=== PATIENT | female | born 1940 | race Caucasian/White ===

== ENCOUNTER 2016-10-03 17:31 | Emergency (ER) | payer MEDICARE, BC ==
[~2016-10-03 17:31] MED LIST: Lidocaine 1% 20 ML MDV INFILT ONE
[2016-10-03] MEDS ORDERED: Amoxicillin/Clavulanate K 875-125 MG Tab PO ONE (18:44)
[2016-10-03] MEDS ORDERED: Diphtheria,Pertussis(Acell),Tetanus Vaccine 0.5 ML SDV IM ONE (18:45)
--- NOTE | 2016-10-03 18:48 | EDM.PDOC ---
ED HPI Skin/Rash - General Chief Complaint: Laceration Stated Complaint: RIGHT HAND INJURY Time Seen by Provider: 10/03/16 17:46 Source: Reports: Patient, Family History Limitations: Reports: No limitations - History of Present Illness INITIAL COMMENTS - FREE TEXT/NARRATIVE: 76 years old w f came to the ed after she injured her right hand [place] a [place]. Pt injured her right 2nd and 3rd finger. Pt has FROM. There was no active bleed. Pt denied other acute medial issues. Her SBP was 188 on arrival. 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(s) - Related Data Allergies Allergy/AdvReac Type Severity Reaction Status Date / Time ciprofloxacin [From Cipro] Allergy Headache Verified 10/03/16 17:45 nyquil Allergy Hypertensio Uncoded 10/03/16 17:45 n Home Meds: Ambulatory Orders Medication Instructions Recorded Confirmed Amoxicillin/Potassium Clav 1 each PO BID #20 tablet 10/03/16 [Augmentin 875-125 Tablet] Past Medical History HEENT History: Reports: Impaired vision, Other (see below) Other HEENT History: wears glasses Cardiovascular History: Reports: High cholesterol, Hypertension 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: - Infectious Disease History Infectious Disease History: Reports: Chicken pox, Measles, Mumps, Shingles - Past Surgical History Female Surgical History: Reports: Hysterectomy Social & Family History - Tobacco Use Smoking Status *Q: Never Smoker Second Hand Smoke Exposure: No - Caffeine Use Caffeine Use: Reports: Coffee - Recreational Drug Use Recreational Drug Use: No ED ROS GENERAL - Review of Systems Review Of Systems: See Below Constitutional: Reports: no symptoms HEENT: Reports: No symptoms Respiratory: Reports: No Symptoms Cardiovascular: Reports: No symptoms Endocrine: Reports: no symptoms GI/Abdominal: Reports: No symptoms : Reports: no symptoms Musculoskeletal: Reports: no symptoms Skin: Reports: other (Laceration) Neurological: Reports: No Symptoms Psychiatric: Reports: No symptoms Hematologic/Lymphatic: Reports: no symptoms Immunologic: Reports: no symptoms ED EXAM, SKIN/RASH Exam: See Below Exam Limited By: No limitations General Appearance: alert, WD/WN, mild distress Eye Exam: bilateral eye: normal inspection Ears: normal external exam Nose: normal inspection, normal mucosa Throat/Mouth: Normal inspection, Normal lips, Normal teeth Head: atraumatic, normocephalic Neck: normal inspection, supple, non-tender, full range of motion Respiratory/Chest: no respiratory distress, lungs clear, normal breath sounds, no accessory muscle use, chest non-tender Cardiovascular: normal peripheral pulses, regular rate, rhythm, no edema, no gallop, no JVD, no murmur, no rub Peripheral Pulses: 2+: femoral (L), femoral (R) GI/Abdominal: normal bowel sounds, soft, non tender, no organomegaly (Female) Exam: Deferred Rectal (Female) Exam: Deferred Back Exam: normal inspection, full range of motion Extremities: normal range of motion, normal capillary refill, other (LACERATION right 4+5th finger) Neurological: alert, oriented, CN II-XII intact, normal cognition, normal gait Psychiatric: normal affect, normal mood Skin: Warm, Dry, Intact, Wound/incision (LACERATIon 1.5 cm and 2 cm r 2nd and 4th finger dorsal aspect) Characteristics: linear Associated features: warmth, tenderness Lymphatic: no adenopathy ED SKIN PROCEDURES - Laceration/Wound Repair Right Finger Lac/wound length in cm: 3.5 (2 wounds, total 3.5 cm (1.5+2)) Appearance: subcutaneous, clean Distal NVT: neuro & vascular intact, no tendon injury Anesthetic type: local Local anesthesia - Lidocaine (Xylocaine): 1% plain Local anesthetic volume: 5cc Saline irrigation (cc's): 5 (please see nursing note) Exploration/Debridement/Repair: wound explored, in a bloodless field, explored to base Suture size: 4-0 # of sutures: 10 Repaired with: other (ethilon) Drain placement: No Sterile dressing applied: nurse Tetanus status addressed: Yes Complications: No Course - Vital Signs Text/Narrative:: 76 years old w f came to the ed after she injured her right hand [place] a [place]. Pt injured her right 2nd and 3rd finger. Pt has FROM. There was no active bleed. Pt denied other acute medial issues. Her SBP was 188 on arrival. PE: 1) Laceration r 2nd finger, proximal phalanx 1,5 cm linear 2) 3rd r finger, mid phalanx 2 cm Z shaped. No active bleed on both. Full Range of Motion both fingers Procedure: Please see note above Tx: Wound care, neosporine ointment, volar splint r 3rd finger, Augmentin, TD immunization Reexam: Improved Plan: D/C with instruction. Last Recorded V/S: Last Vital Signs Temp 36.6 C 10/03/16 19:11 Pulse 74 10/03/16 19:11 Resp 14 10/03/16 19:11 BP 150/65 H 10/03/16 19:11 Pulse Ox 97 10/03/16 19:11 - Orders/Labs/Meds Orders: Active Orders 24 hr Category Date Time Status Vaccines to be Administered [RC] PER UNIT ROUTINE Care 10/03/16 18:45 Active Hand Comp Min 3V Rt [CR] Stat Exams 10/03/16 17:53 Taken Meds: Medications Discontinued Medications Generic Name Dose Route Start Last Admin Trade Name Logan PRN Reason Stop Dose Admin Amoxicillin/Clavulanate Potassium 1 tab 10/03/16 18:44 10/03/16 18:52 Augmentin 875 Mg/125 Mg PO 10/03/16 18:45 1 tab ONETIME ONE Administration Diphtheria/Tetanus/Acell Pertussis 0.5 ml 10/03/16 18:45 10/03/16 18:54 Adacel IM 10/03/16 18:46 0.5 ml .ONCE ONE Administration Departure - Departure Time of Disposition: 18:51 Disposition: Home, Self-Care 01 Condition: good Clinical Impression: Finger laceration Qualifiers: Encounter type: initial encounter Qualified Code(s): S61.219A - Laceration without foreign body of unspecified finger without damage to nail, initial encounter Prescriptions: Amoxicillin/Potassium Clav [Augmentin 875-125 Tablet] 1 each PO BID #20 tablet Instructions: Sutured Wound Care Referrals: PCP,Not In Area [Primary Care Provider] - Forms: ED Department Discharge Additional Instructions: Plaese take tylenol/advil for pain, please take the AbX as recommended, wound check in 2-3 days, please avoid bending your finger for 1 week. Suture removal in 2 weeks. Please come back to the ed if your symptoms get worse acutely. - My Orders Last 24 Hours: My Active Orders 10/03/16 17:53 Hand Comp Min 3V Rt [CR] Stat 10/03/16 18:45 Vaccines to be Administered [RC] PER UNIT ROUTINE - Assessment/Plan Last 24 Hours: My Active Orders 10/03/16 17:53 Hand Comp Min 3V Rt [CR] Stat 10/03/16 18:45 Vaccines to be Administered [RC] PER UNIT ROUTINE
[2016-10-03 19:13] VITALS: BP 150/65
--- NOTE | 2016-10-06 10:29 | CR ---
INDICATION: Crushing injury to right hand and fingers from heavy door. RIGHT HAND: Three views of the right hand revealed somewhat demineralized appearance, suggesting osteoporosis - correlate clinically. Comminuted fracture of the shaft and proximal phalanx of the 5th finger is noted with slight separation of fracture fragments, but overall adequate position and alignment. The comminuted fracture extends completely through the mid shaft and into the proximal metaphysis on a slightly oblique course, beginning distally laterally near the distal shaft, and extending to the proximal metaphysis medially. Additionally, there is a chip fracture fragment through the mid shaft of the proximal phalanx of the 4th finger with approximately 3 mm lateral offset of the distal fracture fragment. Soft tissue swelling is noted overlying the dorsum of the hand at the level of the metacarpophalangeal joints - distal metacarpals. IMPRESSION: Fractures of the proximal phalanges of the 4th and 5th fingers, as noted above. MTDD
== END 2016-10-03 19:11 | disposition home or self-care (01) ==
LOC: FB.ED 17:31
DX: S61.210A Laceration without foreign body of right index finger without damage to nail, initial encounter (principal); S61.212A Laceration without foreign body of right middle finger without damage to nail, initial encounter; S61.214A Laceration without foreign body of right ring finger without damage to nail, initial encounter; I10 Essential (primary) hypertension; E78.00 Pure hypercholesterolemia, unspecified; Z23 Encounter for immunization; Z90.710 Acquired absence of both cervix and uterus; Z88.1 Allergy status to other antibiotic agents; Z88.8 Allergy status to other drugs, medicaments and biological substances; W23.0XXA Caught, crushed, jammed, or pinched between moving objects, initial encounter
CPT/HCPCS: 12002; 73130; 90471; 90715; 99283; A4217; A9270

== ENCOUNTER 2017-11-13 14:36 | Emergency (ER) | payer MEDICARE, BC ==
--- NOTE | 2017-11-13 15:08 | EDM.PDOC ---
ED HPI GENERAL MEDICAL PROBLEM - General Chief Complaint: General Stated Complaint: FELL-INJ RT ARM AND L RIB Time Seen by Provider: 11/13/17 14:50 Source of Information: Reports: Patient, EMS History Limitations: Reports: No Limitations - History of Present Illness INITIAL COMMENTS - FREE TEXT/NARRATIVE: [place]. She struck her head, nose, left chest, left abdomen, right wrist and right shoulder. +LOC, complains of nausea. No headache, +neck pain. Onset: Today Location: Reports: Head, Face, Neck, Chest, Abdomen, Upper Extremity, Right Quality: Reports: Dull Severity: Moderate Associated Symptoms: Reports: Chest Pain right arm and left side rib area Pain Score (Numeric/FACES): 9 - Related Data Allergies Allergy/AdvReac Type Severity Reaction Status Date / Time ciprofloxacin [From Cipro] Allergy Headache Verified 11/13/17 15:49 nyquil Allergy Hypertensio Uncoded 10/03/16 17:45 n Home Meds: Home Meds Simvastatin [Zocor] 40 mg PO DAILY 11/13/17 [History] amLODIPine [Norvasc] 5 mg PO DAILY 11/13/17 [History] Past Medical History HEENT History: Reports: Impaired Vision, Other (See Below) Other HEENT History: wears glasses Cardiovascular History: Reports: High Cholesterol, Hypertension 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: - Infectious Disease History Infectious Disease History: Reports: Chicken Pox, Measles, Mumps, Shingles - Past Surgical History Female Surgical History: Reports: Hysterectomy Social & Family History - Caffeine Use Caffeine Use: Reports: Coffee ED ROS GENERAL - Review of Systems Review Of Systems: See Below Constitutional: Reports: No Symptoms HEENT: Reports: Nosebleed (resolved), Other (nose pain) Respiratory: Reports: No Symptoms Cardiovascular: Reports: No Symptoms Endocrine: Reports: No Symptoms GI/Abdominal: Reports: Abdominal Pain (left) Musculoskeletal: Reports: Neck Pain, Shoulder Pain (right), Other (right wrist pain) Skin: Reports: Other (abrasion to nose) Neurological: Reports: No Symptoms Psychiatric: Reports: No Symptoms ED EXAM, GENERAL - Physical Exam Exam: See Below Exam Limited By: No Limitations General Appearance: Alert, WD/WN, No Apparent Distress Eye Exam: Bilateral Eye: PERRL Nose: Nasal Swelling, Other (dried blood @nares) Throat/Mouth: Normal Inspection, No Airway Compromise Head: Atraumatic, Normocephalic Neck: Tender Midline Respiratory/Chest: No Respiratory Distress, Lungs Clear, Normal Breath Sounds Cardiovascular: Normal Peripheral Pulses, Regular Rate, Rhythm, No Murmur Peripheral Pulses: 2+: Radial (R) GI/Abdominal: Normal Bowel Sounds, Soft, No Distention, Tender (moderate LUQ) Extremities: Other (tenderness and swelling to right wrist, tenderness to right shoulder) Neurological: Alert, Oriented, Normal Cognition, No Motor/Sensory Deficits Skin Exam: Warm, Dry, Other (abrasion to nose) ED GENERAL MEDICAL PROCEDURES - Splinting Right Upper Extremity Splint Site: right short arm Pre-procedure NV status: Normal Post-procedure NV status: Normal Splint Material: Fiberglass Splint Design: Volar Applied & Form Fitted By: Provider Provider Post-Splint Application NV Check: NV Status Normal, Good Position Complications: No Course - Vital Signs Last Recorded V/S: Last Vital Signs Temp 36.8 C 11/13/17 14:36 Pulse 73 11/13/17 14:36 Resp 18 11/13/17 14:36 BP 153/61 H 11/13/17 14:36 Pulse Ox 94 L 11/13/17 14:36 - Orders/Labs/Meds Orders: Active Orders 24 hr Category Date Time Status Abdomen Pelvis w Cont [CT] Stat Exams 11/13/17 15:10 Taken Cervical Spine wo Cont [CT] Stat Exams 11/13/17 15:10 Taken Chest wo Cont [CT] Stat Exams 11/13/17 15:10 Taken Head wo Cont [CT] Stat Exams 11/13/17 15:10 Taken Knee 1V or 2V Bi [CR] Stat Exams 11/13/17 15:41 Ordered Max Facial Sinus wo Cont [CT] Stat Exams 11/13/17 15:10 Taken Shoulder Comp Rt [CR] Stat Exams 11/13/17 15:41 Ordered Wrist Comp Min 3V Rt [CR] Stat Exams 11/13/17 15:40 Ordered Sodium Chloride 0.9% [Normal Saline] 1,000 ml Med 11/13/17 15:00 Active IV ASDIRECTED Medication Orders Sodium Chloride (Normal Saline) 1,000 mls @ 100 mls/hr IV ASDIRECTED BOBBY Last Admin: 05/18/18 16:50 Dose: 100 mls/hr Labs: Laboratory Tests 11/13/17 11/13/17 Range/Units 15:20 15:20 WBC 11.7 (4.5-12.0) X10-3/uL RBC 4.53 (3.23-5.20) x10(6)uL Hgb 13.4 (11.5-15.5) g/dL Hct 40.1 (30.0-51.3) % MCV 88.6 (80-96) fL MCH 29.6 (27.7-33.6) pg MCHC 33.4 (32.2-35.4) g/dL RDW 12.9 (11.5-15.5) % Plt Count 198 (125-369) X10(3)uL MPV 9.2 (7.4-10.4) fL Neut % (Auto) 74.1 (46-82) % Lymph % (Auto) 20.8 (13-37) % Wagoner % (Auto) 3.2 L (4-12) % Eos % (Auto) 1 (1.0-5.0) % Baso % (Auto) 1 (0-2) % Neut # (Auto) 8.7 H (1.6-8.3) # Lymph # (Auto) 2.4 (0.6-5.0) # Wagoner # (Auto) 0.4 (0.0-1.3) # Eos # (Auto) 0.1 (0.0-0.8) # Baso # (Auto) 0.1 (0.0-0.2) # Sodium 139 (135-145) mmol/L Potassium 3.4 L (3.5-5.3) mmol/L Chloride 104 (100-110) mmol/L Carbon Dioxide 25 (21-32) mmol/L BUN 14 (7-18) mg/dL Creatinine 0.7 (0.55-1.02) mg/dL Est Cr Clr Drug Dosing TNP Estimated GFR (MDRD) > 60 (>60) BUN/Creatinine Ratio 20.0 (9-20) Glucose 136 H (80-116) mg/dL Calcium 8.9 (8.6-10.2) mg/dL Total Bilirubin 0.4 (0.1-1.3) mg/dL AST 18 (5-25) IU/L ALT 16 (12-36) U/L Alkaline Phosphatase 87 (56-112) IU/L Total Protein 7.7 (6.0-8.0) g/dL Albumin 3.4 (3.2-4.6) g/dL Globulin 4.3 g/dL Albumin/Globulin Ratio 0.8 Meds: Medications Generic Name Dose Route Start Last Admin Trade Name Freq PRN Reason Stop Dose Admin Sodium Chloride 1,000 mls @ 100 mls/hr 11/13/17 15:00 11/13/17 16:50 Normal Saline IV 100 mls/hr ASDIRECTED BOBBY Administration Discontinued Medications Generic Name Dose Route Start Last Admin Trade Name Freq PRN Reason Stop Dose Admin Ondansetron HCl 4 mg 11/13/17 16:06 11/13/17 16:52 Zofran IVPUSH 11/13/17 16:07 4 mg ONETIME ONE Administration - Radiology Interpretation Free Text/Narrative:: CT Head, C-spine, Face, Chest and Abd/Pelvis: NAD Right shoulder XR: NAD Bilateral knee XR: NAD Right wrist XR: distal radius fx, mildly angulated and ulna styloid fx Departure - Departure Time of Disposition: 17:20 Disposition: Home, Self-Care 01 Condition: Good Clinical Impression: Distal radius fracture, right, Facial contusion, Contusion, trunk, Contusion of right shoulder - Discharge Information Instructions: Facial or Scalp Contusion, [id number], Wrist Fracture Treated With Immobilization, [id number], Contusion, [id number], Cast or Splint Care , Adult, [id number] Referrals: Taylor Arias MD [Primary Care Provider] - Forms: ED Department Discharge Additional Instructions: OTC Tylenol as needed for pain. Follow up with Orthopedic surgery 2-3 days. - My Orders Last 24 Hours: My Active Orders 11/13/17 15:00 Sodium Chloride 0.9% [Normal Saline] 1,000 ml IV ASDIRECTED 11/13/17 15:10 Abdomen Pelvis w Cont [CT] Stat Cervical Spine wo Cont [CT] Stat Chest wo Cont [CT] Stat Head wo Cont [CT] Stat Max Facial Sinus wo Cont [CT] Stat 11/13/17 15:40 Wrist Comp Min 3V Rt [CR] Stat 11/13/17 15:41 Knee 1V or 2V Bi [CR] Stat Shoulder Comp Rt [CR] Stat - Assessment/Plan Last 24 Hours: My Active Orders 11/13/17 15:00 Sodium Chloride 0.9% [Normal Saline] 1,000 ml IV ASDIRECTED 11/13/17 15:10 Abdomen Pelvis w Cont [CT] Stat Cervical Spine wo Cont [CT] Stat Chest wo Cont [CT] Stat Head wo Cont [CT] Stat Max Facial Sinus wo Cont [CT] Stat 11/13/17 15:40 Wrist Comp Min 3V Rt [CR] Stat 11/13/17 15:41 Knee 1V or 2V Bi [CR] Stat Shoulder Comp Rt [CR] Stat
[2017-11-13] MEDS: Sodium Chloride 0.9% 1,000 ML IV SCH (16:50)
[2017-11-13] MEDS: Ondansetron 4 MG/2 ML SDV IVPUSH ONE (16:52)
[2017-11-13 20:00] VITALS: BP 133/50
--- NOTE | 2017-11-16 10:27 | CT ---
INDICATION: Trauma. CT CHEST: Spiral 2.5 mm axial sections were obtained through the chest without contrast with sagittal and coronal reconstructions 11/13/2017 - no comparisons. Total exam DLP = 563.01 mGy-cm. Calcifications are noted in brachiocephalic vessels and the aorta. The heart was not enlarged significantly but is prominent. The mediastinum showed no evidence of a mass lesion. The major vessels are intact. No pericardial effusion was seen. There are heavy markings at the lung bases, which may be fibrotic in nature. A minimal area of atelectasis could be present at either lower lobe. Minimal emphysematous changes are also suggested. No contusion, consolidating pneumonia, effusion, or pneumothorax could be identified. The ribs appear grossly intact. No definite spinal fracture could be identified. A benign bone island is noted in a vertebral body, upper middle thoracic. A moderately large calcified granuloma is noted in the left lower lobe posteriorly. IMPRESSION: No acute abnormality identified in the chest by CT. Report was called to Dr. Esparza at approximately 1700 hours on 11/13/2017. [facility]
--- NOTE | 2017-11-16 10:41 | CT ---
INDICATION: Trauma. CT HEAD WITHOUT CONTRAST: Serial contiguous 2.5 and 5 mm sections were obtained through the brain without contrast. No comparison study was available. Total exam DLP = 950.31 mGy-cm. Calcifications are noted in the vertebral and internal carotid arteries. No evidence of bleeding site or hematoma was seen. There is noted some mild frontal and temporal cortical atrophy suggested. Minimal central atrophy is also suggested with the ventricles only slightly prominent. There are bilateral lacunar infarcts in the basal ganglia, and additionally focal abnormal areas of density are noted in the white matter, compatible with subcortical infarcts, right parietal, periventricular, and at the frazier matter/ white matter interface, posterior parietal on the left. These appear to be old. The possibility of new abnormality, especially in the area of the left posterior parietal frazier matter/white matter interface, is difficulty to entirely exclude but is felt to be less likely. No other abnormal areas of density were identified. The paranasal sinuses appear to be fairly well-aerated, as are the mastoid air cells. There is a single retention cyst in the right maxillary air cell of tiny size. No cranial abnormality was identified. Report was called to Dr. Esparza at approximately 1700 hours on 11/13/2017. [facility]
--- NOTE | 2017-11-16 10:54 | CT ---
INDICATION: Trauma. CT MAXILLOFACIAL AREA: Serial contiguous 0.625 mm axial images of the maxillofacial area were obtained, 11/13/2017 - no comparison study was available. Total exam DLP = 514.70 mGy-cm. Degenerative changes are noted at the atlantoodontoid joint. There is thickening of the linings of the maxillary antra of mild degree, more prominent on the right than left. The right maxillary infundibulum is partially opacified. The left maxillary infundibulum is widely patent. Thickening of the lining of a few of the ethmoidal air cells is noted to a mild degree. The lining of the central right sphenoidal air cell is very slightly thickened. Minimal thickening at the base of the right frontal air cell and left frontal air cell is also seen. No bony erosion, air fluid levels, or complete opacifications could be identified. Nasal passages were fairly patent. IMPRESSION: Minimal findings in the paranasal sinuses, including a few tiny retention cysts in the right maxillary antrum and various areas of mild thickening of the linings. Findings may be on the basis of allergic sinusitis. A finding to strongly suggest an acute bacterial sinusitis is not identified. No evidence of a definite fracture site could be identified. Report was called to Dr. Esparza at approximately 1700 hours on 11/13/2017. [facility]
--- NOTE | 2017-11-16 11:04 | CT ---
INDICATION: Trauma. CT CERVICAL SPINE: Spiral 2.5 mm axial sections were obtained through the cervical spine with sagittal and coronal reconstructions. Total exam DLP = 409.40 mGy-cm. Moderate degenerative changes with narrowing are noted at the atlantoodontoid joint. Hypertrophic changes, sclerosis, and narrowing are noted. There is also narrowing of the disk spaces at C5-6, C6-7 with hypertrophic degenerative changes anterolaterally and posteriorly off those vertebral bodies , narrowing those neural foramina, more prominently on the right than the left. Vertebral body and disk heights were otherwise maintained. There is some slight reversal of normal cervical lordosis at the C5-6 level, C6-7 level, apparently due to degenerative changes. Prevertebral space appeared to be normal. Bone density appeared to be normal to slightly decreased. A definite acute fracture or dislocation was not identified with vertebral elements fairly well lined up. Hypertrophic changes are also noted at the lateral masses at C3-4 and C4-5 but to a lesser extent at C5-6 and C6-7. The most severe lateral mass hypertrophic changes are noted on the left at C3-4. IMPRESSION: 1. Degenerative changes and disk disease, as noted above. 2. No acute fracture or dislocation identified. Report was called to Dr. Esparza at approximately 1700 hours on 11/13/2017. [facility]
--- NOTE | 2017-11-16 11:13 | CT ---
INDICATION: Trauma. CT ABDOMEN AND PELVIS: Spiral 1.25 mm axial images were obtained through the abdomen and pelvis without contrast and revealed no finding to suggest a posttraumatic change in the organs or bony structures. There are degenerative changes and disk disease of moderate degree at L5-S1 with more severe degenerative disk disease and hypertrophic changes at T12-L1 and especially L1- 2. No fracture site was seen in the spine, however, and this is included into the area of the lower middle thoracic spine. There is noted, however, what appears to be a benign bone island at T6 vertebral body. Total exam DLP = 1,682.79 mGy-cm. Calcifications are noted in the abdominal aorta at the origin of the superior mesenteric artery, origin of the renal arteries, iliac and femoral arteries. The uterus is absent. The urinary bladder had a normal appearance. No evidence of free air or obstruction was noted in the bowel. The appendix appeared normal, visualized on axial images #217 through #[id number]. No retroperitoneal masses or hematoma was identified. Fatty replacement of the pancreas is noted with the pancreas otherwise unremarkable. The spleen is intact. The kidneys are both intact in appearance with pyelocaliectasis likely a variant. No definite obstructive uropathy could be identified. No definite renal masses or calcifications were seen. Diverticulosis is minimal in the splenic flexure area without evidence of diverticulitis. Degenerative changes are noted at the sacroiliac joints of moderate degree. The liver appeared normal. No gallstones were demonstrated. Common bile duct did not appear to be enlarged. Lower lung frey and pleural spaces showed evidence of some minimal emphysematous changes, a calcified granuloma in the left lung base, and pulmonary fibrosis, which is moderate in severity. The heart appears somewhat enlarged. IMPRESSION: 1. 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 2. No definite acute intraabdominal abnormality is identified. 3. ASD. 4. Pulmonary fibrosis, minimal atelectasis- patchy bronchopneumonia is difficult to entirely exclude, however. 5. Minimal diverticulosis coli without evidence of diverticulitis. Report was called to Dr. Esparza at approximately 1700 hours on 11/13/2017. [facility]
--- NOTE | 2017-11-17 08:15 | CR ---
INDICATION: Injury/fall. RIGHT WRIST: Three views of the right wrist revealed an appearance of demineralization, suggesting osteoporosis - correlate clinically. Colles type fracture of the distal radial metaphysis and ulnar styloid is noted. Anterior angulation is noted at the radial fracture site. Lateral angulation is suggested with medial offset at the ulnar fracture site with the fracture slightly comminuted at the ulnar styloid. The radial fracture site is also comminuted somewhat. There is an appearance suggesting endosteal sclerosis, which would suggest a subacute fracture. Findings may represent a re-fracture through an old area of fracture but should be correlated clinically in that regard. There is noted a joint effusion with volar fat pad deviation. Degenerative changes are suggested at the third and fourth metacarpocarpal joints and possibly minimally at the second metacarpocarpal joint. IMPRESSION: 1. Colles fracture with moderate deformity, significant angulation dorsally of the radial joint surface is noted. 2. Mild osteoarthritis. 3. Joint effusion. 4. Possible osteoporosis - correlate clinically. [facility]
--- NOTE | 2017-11-17 08:17 | CR ---
INDICATION: Injury/fall. BILATERAL KNEES: Frontal and lateral views of the knees were obtained 2017 and revealed no evidence of a fracture, dislocation, or other significant bone or joint abnormality. OMI
--- NOTE | 2017-11-17 08:19 | CR ---
INDICATION: Injury/fall. RIGHT SHOULDER: Three images of the right shoulder were obtained in frontal and Y views, portable, and revealed no evidence of an acute fracture, dislocation, or other significant appearing bone or joint abnormality. Adjacent ribs appear to be intact. [facility]
== END 2017-11-13 17:45 | disposition home or self-care (01) ==
LOC: FB.ED 14:36
DX: S52.531A Colles' fracture of right radius, initial encounter for closed fracture (principal); S20.20XA Contusion of thorax, unspecified, initial encounter; S40.011A Contusion of right shoulder, initial encounter; S00.83XA Contusion of other part of head, initial encounter; S00.31XA Abrasion of nose, initial encounter; Z88.8 Allergy status to other drugs, medicaments and biological substances; Z88.1 Allergy status to other antibiotic agents; Z79.899 Other long term (current) drug therapy; I10 Essential (primary) hypertension; Y92.89 Other specified places as the place of occurrence of the external cause; W01.0XXA Fall on same level from slipping, tripping and stumbling without subsequent striking against object, initial encounter
CPT/HCPCS: 29125; 36415; 70450; 70486; 71250; 72125; 73030; 73110; 73560; 74176; 80053; 85025; 96361; 96374; 99284; J2405; J7030